=== PATIENT | female | born 1955 | race Caucasian/White ===

== ENCOUNTER 2023-10-14 19:32 | Inpatient (IN) | payer MEDICARE, OTHER ==
[~2023-10-14] VITALS: Ht 170.2 cm; Wt 102.3 kg
[2023-10-14] MEDS: normal saline 1000ml 1,000 ML IV ONE (20:22)
[2023-10-14 20:24] LABS: BASOPHILS % (AUTO) 0.2 % (0-1); EOSINOPHILS # (AUTO) 0.1 X10'3 (0-0.9); EOSINOPHILS % (AUTO) 1.6 % (0-6); HEMATOCRIT 40.5 % (35.0-45.0); HEMOGLOBIN 13.5 g/dl (12.0-16.0); LYMPHOCYTES # (AUTO) 1.9 X10'3 (1.1-4.8); LYMPHOCYTES % (AUTO) 23.9 % (21-51); MEAN CORPUSCULAR HEMOGLOBIN 30.5 PG (27.0-31.0); MEAN CORPUSCULAR HGB CONC 33.3 g/dL (33.0-36.5); MEAN CORPUSCULAR VOLUME 91.5 FL (78-98); MEAN PLATELET VOLUME 9.1 FL (7.4-10.4); MONOCYTES # (AUTO) 0.5 X10'3 (0-0.9); MONOCYTES % (AUTO) 6.8 % (2-12); NEUTROPHILS # (AUTO) 5.4 X10'3 (1.8-7.7); NEUTROPHILS % (AUTO) 67.5 % (42-75); PLATELET COUNT 279 X10'3 (140-440); RED BLOOD COUNT 4.43 X10'6 (4.20-5.60); RED CELL DISTRIBUTION WIDTH 13.8 % (11.5-14.5)
[2023-10-14 20:29] LABS: ALANINE AMINOTRANSFERASE 28 U/L (12-78); ALBUMIN 3.9 G/DL (3.4-5.0); ALBUMIN/GLOBULIN RATIO 1.1 (1.1-1.5); ALKALINE PHOSPHATASE 111 IU/L (46-116); ANION GAP 12 (8-16); ASPARTATE AMINO TRANSFERASE 20 U/L (10-37); BILIRUBIN,TOTAL 0.5 MG/DL (0.1-1.0); BLOOD UREA NITROGEN 12 MG/DL (7-18); BUN/CREATININE RATIO 14.6 (10.0-20.0); CALCIUM 8.9 MG/DL (8.5-10.1); CHLORIDE 104 MMOL/L (99-107); CREATININE 0.82 MG/DL (0.40-0.90); GLUCOSE 122 MG/DL (70-104); POTASSIUM 3.9 MMOL/L (3.5-5.1); SODIUM 144 MMOL/L (135-145); TOTAL CARBON DIOXIDE 28.1 MMOL/L (24-32); TOTAL PROTEIN 7.3 G/DL (6.4-8.2); eCRCL 66 ML/MIN; eGFR 70 ML/MIN
[2023-10-14 20:36] LABS: PRO BRAIN NATRIURETIC PEPTIDE 1106 PG/ML (0-125)
[2023-10-14 23:05] LABS: UA COLLECTION TYPE CLN CATCH MIDSTREAM
[2023-10-14 23:06] LABS: BILIRUBIN,URINE NEGATIVE (Neg); CLARITY,URINE SLIGHTLY CLOUDY (Clear); COLOR,URINE YELLOW (Yellow); GLUCOSE, URINE NEGATIVE (Neg); KETONES,URINE NEGATIVE (Neg); LEUKOCYTE ESTERASE ,URINE NEGATIVE (Neg); NITRITES, URINE NEGATIVE (Neg); OCCULT BLOOD,URINE NEGATIVE (Neg); PROTEIN,URINE TRACE mg/dl (Neg); UROBILINOGEN,URINE 0.2 E.U/dL (0.2-1.0)
[2023-10-14 23:14] LABS: BACTERIA,URINE FEW /HPF (Neg); MUCUS STRANDS FEW /LPF (Neg); RBC,URINE 0-2 /HPF (0-2); SQUAMOUS EPITHELIAL CELL,UR MODERATE /LPF (FEW); WBC,URINE 0-4 /HPF (0-4)
[2023-10-14] MEDS ORDERED: magnesium Cl slow-release 64mg tablet PO PRN (23:15)
[2023-10-14] MEDS ORDERED: magnesium hydroxide 30ml (MOM) UD suspension PO PRN (23:15)
[2023-10-14] MEDS ORDERED: magnesium sulf-water 4G/100mL 100 ML IV PRN (23:15)
[2023-10-14] MEDS ORDERED: magnesium sulf-water 2g/50mL 50 ML IV PRN (23:15)
[2023-10-14] MEDS ORDERED: potassium Cl 20 mEq SR tablet PO PRN ×2 (23:15)
[2023-10-14] MEDS ORDERED: mag hydrox/Alum hydrox/simeth 30ml oral suspension PO PRN (23:15)
[2023-10-14] MEDS ORDERED: ondansetron/PF 4mg/2ml inj IV PRN (23:15)
[2023-10-14] MEDS ORDERED: potassium Cl 40MEQ/1/2NS 520ml 520 ML IV PRN (23:15)
[2023-10-15] VITALS (9 sets, daily range): BP systolic 120–161; BP diastolic 63–87; PULSE 67–86; RESP 14–18; TEMP 97–98; O2SAT 94–98
[2023-10-15] MEDS ORDERED: VENL150C58 PO (00:53)
[2023-10-15 02:23] LABS: BASOPHILS % (AUTO) 0.4 % (0-1); EOSINOPHILS # (AUTO) 0.1 X10'3 (0-0.9); EOSINOPHILS % (AUTO) 0.8 % (0-6); HEMATOCRIT 36.6 % (35.0-45.0); HEMOGLOBIN 12.4 g/dl (12.0-16.0); LYMPHOCYTES # (AUTO) 2.1 X10'3 (1.1-4.8); LYMPHOCYTES % (AUTO) 22.8 % (21-51); MEAN CORPUSCULAR HEMOGLOBIN 31.1 PG (27.0-31.0); MEAN CORPUSCULAR HGB CONC 33.9 g/dL (33.0-36.5); MEAN CORPUSCULAR VOLUME 91.7 FL (78-98); MEAN PLATELET VOLUME 9.5 FL (7.4-10.4); MONOCYTES # (AUTO) 0.7 X10'3 (0-0.9); MONOCYTES % (AUTO) 7.3 % (2-12); NEUTROPHILS # (AUTO) 6.2 X10'3 (1.8-7.7); NEUTROPHILS % (AUTO) 68.7 % (42-75); PLATELET COUNT 263 X10'3 (140-440); RED BLOOD COUNT 3.99 X10'6 (4.20-5.60); RED CELL DISTRIBUTION WIDTH 13.9 % (11.5-14.5)
[2023-10-15 02:45] LABS: ALANINE AMINOTRANSFERASE 20 U/L (12-78); ALBUMIN 3.5 G/DL (3.4-5.0); ALKALINE PHOSPHATASE 100 IU/L (46-116); ANION GAP 9 (8-16); ASPARTATE AMINO TRANSFERASE 20 U/L (10-37); BILIRUBIN,TOTAL 0.3 MG/DL (0.1-1.0); BLOOD UREA NITROGEN 10 MG/DL (7-18); BUN/CREATININE RATIO 12.8 (10.0-20.0); CALCIUM 8.8 MG/DL (8.5-10.1); CHLORIDE 108 MMOL/L (99-107); CHOL/HDL RATIO 3.4 (0.00-4.99); CHOLESTEROL 210 MG/DL (0-200); CREATININE 0.78 MG/DL (0.40-0.90); GLUCOSE 112 MG/DL (70-104); HDL CHOLESTEROL 62 MG/DL (35-60); LDL CHOLESTEROL 111 MG/DL (50-100); MAGNESIUM 1.9 MG/DL (1.5-2.4); PHOSPHORUS 3.6 MG/DL (2.3-4.5); SODIUM 144 MMOL/L (135-145); TOTAL CARBON DIOXIDE 26.8 MMOL/L (24-32); TOTAL PROTEIN 7.1 G/DL (6.4-8.2); TRIGLYCERIDES 149 MG/DL (20-135); eCRCL 69 ML/MIN; eGFR 74 ML/MIN
[2023-10-15 03:23] LABS: HEMOGLOBIN A1C 5.6 % (4.5-6.2)
--- NOTE | 2023-10-15 04:02 | NUR ---
PT REPORTED AN APPROXIMATE 30 POUND WEIGHT LOSS IN THE LAST 6MO. SHE REPORTS THAT SHE HAS JUST LOST HER APPETITE BECAUSE OF THE HEAT, THAT SHE HAS BEEN TOO BUSY SO SHE SKIPS MEALS FREQUENTLY AND JUST DOESN'T FEEL HUNGRY ENOUGH TO EAT. Addendum: 10/15/23 at 0404 by Juanita Zavaleta RN RN Amended: Links added.
--- NOTE | 2023-10-15 06:13 | NUR ---
i agreed with corry Grant's assessment and interventions.
[2023-10-15] MEDS: docusate sod 100mg capsule PO SCH (08:00)
[2023-10-15] MEDS: K and/or MAG REPLACEMENT MC SCH (08:00)
[2023-10-15] MEDS: venlafaxine XR 75mg capsule (Q24H) PO SCH (08:33)
[2023-10-15] MEDS: heparin, porcine 5000 units/ml vial SQ SCH (08:35)
[2023-10-15] MEDS: normal saline 500ml IV soln 500 ML IV ONE (10:20)
--- NOTE | 2023-10-15 18:00 | NUR ---
Report received from Gita HWANG, assumed care of Pt
[2023-10-16 06:07] LABS: BASOPHILS % (AUTO) 0.5 % (0-1); EOSINOPHILS # (AUTO) 0.1 X10'3 (0-0.9); EOSINOPHILS % (AUTO) 2.2 % (0-6); HEMATOCRIT 38.5 % (35.0-45.0); LYMPHOCYTES % (AUTO) 34.5 % (21-51); MEAN CORPUSCULAR HEMOGLOBIN 30.8 PG (27.0-31.0); MEAN CORPUSCULAR HGB CONC 33.7 g/dL (33.0-36.5); MEAN CORPUSCULAR VOLUME 91.5 FL (78-98); MEAN PLATELET VOLUME 9.4 FL (7.4-10.4); MONOCYTES # (AUTO) 0.5 X10'3 (0-0.9); MONOCYTES % (AUTO) 8.9 % (2-12); NEUTROPHILS # (AUTO) 3.1 X10'3 (1.8-7.7); NEUTROPHILS % (AUTO) 53.9 % (42-75); PLATELET COUNT 235 X10'3 (140-440); RED BLOOD COUNT 4.21 X10'6 (4.20-5.60); WHITE BLOOD COUNT 5.8 X10'3 (4.5-11.0)
--- NOTE | 2023-10-16 06:32 | NUR ---
Patient in room [facility]TH[facility] 4015. I have received report from ERI Forte and had the opportunity to ask questions and assume patient care.
[2023-10-16 06:33] LABS: ALANINE AMINOTRANSFERASE 24 U/L (12-78); ALBUMIN 3.4 G/DL (3.4-5.0); ALBUMIN/GLOBULIN RATIO 1.1 (1.1-1.5); ALKALINE PHOSPHATASE 97 IU/L (46-116); ANION GAP 10 (8-16); ASPARTATE AMINO TRANSFERASE 21 U/L (10-37); BILIRUBIN,TOTAL 0.6 MG/DL (0.1-1.0); BLOOD UREA NITROGEN 3 MG/DL (7-18); BUN/CREATININE RATIO 4.3 (10.0-20.0); CALCIUM 8.8 MG/DL (8.5-10.1); CHLORIDE 107 MMOL/L (99-107); CREATININE 0.69 MG/DL (0.40-0.90); GLUCOSE 103 MG/DL (70-104); MAGNESIUM 1.8 MG/DL (1.5-2.4); SODIUM 143 MMOL/L (135-145); TOTAL CARBON DIOXIDE 26.5 MMOL/L (24-32); TOTAL PROTEIN 6.6 G/DL (6.4-8.2); eCRCL 78 ML/MIN; eGFR 85 ML/MIN
[2023-10-16 06:52] VITALS: BP 132/79; PULSE 69; RESP 14; TEMP 98.6; O2SAT 99
[2023-10-16 07:11] LABS: POTASSIUM 3.9 MMOL/L (3.5-5.1)
[2023-10-16] MEDS: carVEDilol 3.125mg tablet PO SCH (07:15)
[2023-10-16] MEDS: losartan 25mg tablet PO SCH (07:15)
[2023-10-16 07:31] VITALS: RESP 14; O2SAT 99
[2023-10-16 08:00] VITALS: BP_SYST 128; BP_SYST 129; BP_SYST 130; BP_DIAS 80; BP_DIAS 84; PULSE 73; PULSE 83; PULSE 97
[2023-10-16] MEDS: EMPAGLIFLOZIN 10 MG TABLET PO SCH (08:00)
--- NOTE | 2023-10-16 09:01 | NUR ---
PAGER ID: [phone] MESSAGE: [id number]- [email or web address]- per report pt to have PM placed today at 1200. pt has been NPO and has jardiance ordered. Ok to give or hold?- Veronika [phone]
[2023-10-16 09:41] LABS: PROTHROMBIN TIME 10.8 SECONDS (9.0-12.0)
[2023-10-16 10:00] VITALS: BP 132/88; PULSE 80; RESP 18; TEMP 98; O2SAT 96
[2023-10-16] MEDS: spironolactone 25 MG tablet PO SCH (10:02)
--- NOTE | 2023-10-16 10:59 | NUR ---
Order for pacemaker today at noon cancelled and ordered for tomorrow 0900. Called and spoke to Jordan in [facility] who stated Dr. Campoverde will do tomorrow. Called to Dr. Beck ok to feed patient? Dr. Beck states will round on patient with Dr. Riojas and will discuss.
--- NOTE | 2023-10-16 11:41 | NUR ---
Dr. Riojas in to see patient. Ok that patient gets Jardiance and to feed patient.
[2023-10-16 14:34] LABS: URINE AMPHETAMINE SCREEN NEGATIVE (Neg); URINE BARBITUATE SCREEN NEGATIVE (Neg); URINE BENZODIAZEPINES SCREEN NEGATIVE (Neg); URINE CANNABINOID SCREEN POSITIVE (Neg); URINE COCAINE SCREEN NEGATIVE (Neg); URINE METHADONE SCREEN NEGATIVE (Neg); URINE OPIATE SCREEN NEGATIVE (Neg); URINE PHENCYCLIDINE SCREEN NEGATIVE (Neg)
--- NOTE | 2023-10-16 15:49 | NUR ---
Malnutrition consult: Per RN malnutrition screen pt reports 34 or more pounds wt loss and decreased PO intake/appetite. Wt this admit of 102.27kg is ~167% of IBW. Wt this admit is up from only other wt hx in EMR of 92.45kg on 07/01/18. Pt presents with no decreased muscle strength and no edema per EMR. Pt seen at bedside however was in a deep sleep and did not wake up to verbal cues. Pt appeared nourished with visible signs of fat or muscle loss related to malnutrition. Based on information obtained and pt's physical presentation, RD unable to identify a minimum of two malnutrition criteria at this time. Will continue to monitor for signs and symptoms. Addendum: 10/16/23 at [address] Amended: Links added.
[2023-10-16] MEDS: acetaminophen 325mg tablet PO PRN (16:48)
[2023-10-16 18:00] VITALS: BP 127/74; PULSE 71; RESP 18; TEMP 98.2; O2SAT 95
--- NOTE | 2023-10-16 18:27 | NUR ---
Problems reprioritized. Patient report given, questions answered & plan of care reviewed with ERI Vidal.
[2023-10-16 22:00] VITALS: BP 119/80; PULSE 72; RESP 15; TEMP 98.2; O2SAT 94
[2023-10-17] VITALS (13 sets, daily range): BP systolic 96–116; BP diastolic 52–70; PULSE 61–85; RESP 16–20; TEMP 97–97.7; O2SAT 90–96
[2023-10-17 05:04] LABS: BASOPHILS # (AUTO) 0.1 X10'3 (0-0.2); BASOPHILS % (AUTO) 0.7 % (0-1); EOSINOPHILS # (AUTO) 0.1 X10'3 (0-0.9); EOSINOPHILS % (AUTO) 1.9 % (0-6); HEMATOCRIT 42.8 % (35.0-45.0); HEMOGLOBIN 14.4 g/dl (12.0-16.0); LYMPHOCYTES # (AUTO) 2.4 X10'3 (1.1-4.8); MEAN CORPUSCULAR HEMOGLOBIN 30.6 PG (27.0-31.0); MEAN CORPUSCULAR HGB CONC 33.6 g/dL (33.0-36.5); MEAN CORPUSCULAR VOLUME 91.1 FL (78-98); MEAN PLATELET VOLUME 9.1 FL (7.4-10.4); MONOCYTES # (AUTO) 0.5 X10'3 (0-0.9); MONOCYTES % (AUTO) 7.4 % (2-12); NEUTROPHILS # (AUTO) 4.2 X10'3 (1.8-7.7); PLATELET COUNT 262 X10'3 (140-440); RED CELL DISTRIBUTION WIDTH 13.9 % (11.5-14.5); WHITE BLOOD COUNT 7.4 X10'3 (4.5-11.0)
[2023-10-17 05:12] LABS: PROTHROMBIN TIME 10.5 SECONDS (9.0-12.0)
[2023-10-17 05:18] LABS: ALANINE AMINOTRANSFERASE 19 U/L (12-78); ALBUMIN 3.9 G/DL (3.4-5.0); ALKALINE PHOSPHATASE 111 IU/L (46-116); ANION GAP 9 (8-16); BILIRUBIN,TOTAL 0.8 MG/DL (0.1-1.0); BLOOD UREA NITROGEN 11 MG/DL (7-18); BUN/CREATININE RATIO 13.9 (10.0-20.0); CALCIUM 9.3 MG/DL (8.5-10.1); CHLORIDE 106 MMOL/L (99-107); CREATININE 0.79 MG/DL (0.40-0.90); GLUCOSE 116 MG/DL (70-104); SODIUM 141 MMOL/L (135-145); TOTAL CARBON DIOXIDE 26.5 MMOL/L (24-32); TOTAL PROTEIN 7.8 G/DL (6.4-8.2); eCRCL 68 ML/MIN; eGFR 73 ML/MIN
[2023-10-17] MEDS: vancomycin/NS 1 GM in NS 250 ML IV ONE (06:00)
[2023-10-17 06:01] LABS: ASPARTATE AMINO TRANSFERASE 29 U/L (10-37); PHOSPHORUS 4.9 MG/DL (2.3-4.5); POTASSIUM 4.3 MMOL/L (3.5-5.1)
[2023-10-17] MEDS ORDERED: LIDOcaine 1% W/epiNEPHrine 1:100,000 20ml vial ONE (06:12)
[2023-10-17] MEDS ORDERED: midazolam 1 mg/ML 2ml injection ONE ×4 (06:12→08:35)
[2023-10-17] MEDS ORDERED: vancomycin 1,000mg inj ONE (06:13)
[2023-10-17] MEDS ORDERED: fentaNYL/PF 50MCG/1 ML 2ML syringe ONE (06:13)
[2023-10-17] MEDS ORDERED: iohexol 350 MG/ML 50ML vial IV ONE (06:13)
[2023-10-17] MEDS ORDERED: ceFAZolin 1000mg inj ONE (06:26)
--- NOTE | 2023-10-17 07:04 | NUR ---
Patient down to cardiac cath technologist.
--- NOTE | 2023-10-17 07:04 | NUR ---
Patient in room [facility]TH[facility] 4015. I have received report from Jillian Vidal and had the opportunity to ask questions and assume patient care.
--- NOTE | 2023-10-17 07:04 | NUR ---
IV deborah barth was sent down with patient.
[2023-10-17] MEDS ORDERED: HYDROmorphone 1 mg/ml syringe ONE ×2 (07:27→08:06)
--- NOTE | 2023-10-17 09:23 | NUR ---
Patient back to room accompanied by Esther RN and ERI Suarez. Patient drowsy but easily awakens to voice and denies any complaints at this time. Patient asking for water. Post procedure vitals initiated. Call light placed within patient reach. Left chest implant site CDI, soft around.
--- NOTE | 2023-10-17 09:23 | NUR ---
Patient back to room
[2023-10-17] MEDS: HYDROcodone/acetaminophen 10/325mg tab PO PRN (09:47)
[2023-10-17] MEDS: normal saline 1000ml 1,000 ML IV SCH (09:51)
[2023-10-17] MEDS: normal saline 500ml IV soln 500 ML IV ONE (09:56)
[2023-10-17] MEDS ORDERED: HYDR-3965 PO (11:13)
[2023-10-17] MEDS: morphine 2 MG/ML inj. syringe IV ONE (12:13)
[2023-10-17] MEDS ORDERED: LOSA25TA41 PO (13:37)
[2023-10-17] MEDS ORDERED: COR3.125T PO (13:37)
[2023-10-17] MEDS ORDERED: EMPA10TA PO (13:37)
[2023-10-17] MEDS ORDERED: SPIR25TA PO (13:37)
[2023-10-17] MEDS: HYDROcodone/acetaminophen 5mg/325mg tablet PO PRN (15:39)
--- NOTE | 2023-10-17 17:04 | NUR ---
Patient alert and oriented in no apparent acute distress with at bedside. Discussed with patient discharge instructions and new prescription. Patient verbalizes understanding of teaching. Patient given BIV PPM AICD device information card to take home. Patient escorted out in wheelchair accompanied by x1 staff and spouse. Addendum: 10/17/23 at 1709 by Veronika Ellison RN Patient home meds stored in pharmacy were given patient. Left arm/hand CSM intact, left arm in sling. PPM AICD implant site dressing CDI. No hematoma.
== END 2023-10-17 17:03 | disposition home or self-care (01) | DRG 243 ==
LOC: ER 19:34 → ED HOLD 10-15 00:02 → ORTHO 4S 10-15 01:20 → OBSVTOIN 10-15 17:25
PROVIDERS: ADMIT Surgery Surgical Critical Care; ATTEND Internal Medicine
PROC: 0JH607Z Insertion of Cardiac Resynchronization Pacemaker Pulse Generator into Chest Subcutaneous Tissue and Fascia, Open Approach (ICD-10-PCS; principal; 2023-10-17)
PROC: 02H63JZ Insertion of Pacemaker Lead into Right Atrium, Percutaneous Approach (ICD-10-PCS; 2023-10-17)
PROC: 02HK3JZ Insertion of Pacemaker Lead into Right Ventricle, Percutaneous Approach (ICD-10-PCS; 2023-10-17)
PROC: 02HL3JZ Insertion of Pacemaker Lead into Left Ventricle, Percutaneous Approach (ICD-10-PCS; 2023-10-17)
PROC: B5171ZZ Fluoroscopy of Left Subclavian Vein using Low Osmolar Contrast (ICD-10-PCS; 2023-10-17)
DX: I49.8 Other specified cardiac arrhythmias (principal); I50.22 Chronic systolic (congestive) heart failure; I44.7 Left bundle-branch block, unspecified; I42.0 Dilated cardiomyopathy; I11.0 Hypertensive heart disease with heart failure; F32.A Depression, unspecified; F41.9 Anxiety disorder, unspecified; Z96.643 Presence of artificial hip joint, bilateral; Z90.49 Acquired absence of other specified parts of digestive tract
CPT/HCPCS: 33249; 36415; 71045; 80053; 80061; 80305; 81001; 82948; 83036; 83735; 83880; 84100; 84484; 85025; 85610; 87081; 93005; 93306; 99152; 99153; 99285; A4663; A6258; C1769; C1882; C1895; C1900; G0378; J0690; J1170; J1644; J2250; J2270; J3010; J3370; J3490; J7030; J7040; Q9967

== ENCOUNTER 2023-11-05 07:37 | Day surgery (SDC) | payer MEDICARE ==
[2023-11-05] VITALS (7 sets, daily range): BP systolic 103–115; BP diastolic 57–69; PULSE 63–67; RESP 14–16; TEMP 97.8; O2SAT 92–96
[~2023-11-05] VITALS: Ht 170.2 cm; Wt 103.9 kg
[~2023-11-05 07:37] MED LIST: COR3.125T PO; EMPA10TA PO; HYDR-3965 PO; LOSA25TA41 PO; SPIR25TA PO; VENL150C58 PO
[2023-11-05] MEDS ORDERED: SPIR25TA5 PO (08:36)
[2023-11-05] MEDS ORDERED: LOSA-415 PO (08:39)
[2023-11-05] MEDS ORDERED: CARV3.12 PO (08:40)
[2023-11-05 08:52] LABS: BASOPHILS % (AUTO) 0.4 % (0-1); EOSINOPHILS # (AUTO) 0.3 X10'3 (0-0.9); EOSINOPHILS % (AUTO) 4.7 % (0-6); HEMATOCRIT 36.8 % (35.0-45.0); HEMOGLOBIN 12.2 g/dl (12.0-16.0); LYMPHOCYTES # (AUTO) 1.6 X10'3 (1.1-4.8); MEAN CORPUSCULAR HEMOGLOBIN 30.4 PG (27.0-31.0); MEAN CORPUSCULAR HGB CONC 33.1 g/dL (33.0-36.5); MEAN CORPUSCULAR VOLUME 91.9 FL (78-98); MONOCYTES # (AUTO) 0.6 X10'3 (0-0.9); MONOCYTES % (AUTO) 9.1 % (2-12); NEUTROPHILS # (AUTO) 4.1 X10'3 (1.8-7.7); NEUTROPHILS % (AUTO) 61.8 % (42-75); PLATELET COUNT 230 X10'3 (140-440); RED BLOOD COUNT 4.01 X10'6 (4.20-5.60); RED CELL DISTRIBUTION WIDTH 13.8 % (11.5-14.5); WHITE BLOOD COUNT 6.6 X10'3 (4.5-11.0)
[2023-11-05 08:54] LABS: PROTHROMBIN TIME 10.6 SECONDS (9.0-12.0)
[2023-11-05] MEDS ORDERED: cefazolin 2gm/D5W 100mL 100 ML IV ONE (08:55)
[2023-11-05 09:10] LABS: ALBUMIN 3.6 G/DL (3.4-5.0); ANION GAP 10 (8-16); BLOOD UREA NITROGEN 15 MG/DL (7-18); BUN/CREATININE RATIO 18.8 (10.0-20.0); CALCIUM 8.7 MG/DL (8.5-10.1); CHLORIDE 105 MMOL/L (99-107); GLUCOSE 99 MG/DL (70-104); MAGNESIUM 1.7 MG/DL (1.5-2.4); SODIUM 141 MMOL/L (135-145); TOTAL CARBON DIOXIDE 25.7 MMOL/L (24-32); eCRCL 67 ML/MIN; eGFR 72 ML/MIN
[2023-11-05] MEDS: VANCOMYCIN 1,500MG in NS 300ml IVPB IV ONE (09:25)
[2023-11-05] MEDS ORDERED: midazolam 1 mg/ML 2ml injection ONE ×4 (09:48→12:43)
[2023-11-05] MEDS ORDERED: LIDOcaine 1% W/epiNEPHrine 1:100,000 20ml vial ONE (09:48)
[2023-11-05] MEDS ORDERED: vancomycin 1,000mg inj ONE (09:48)
[2023-11-05] MEDS ORDERED: fentaNYL/PF 50MCG/1 ML 2ML syringe ONE ×2 (09:48→11:44)
[2023-11-05] MEDS ORDERED: proCHLORperazine 10 MG/2 ml inj ONE (12:04)
== END 2023-11-05 15:30 | disposition home or self-care (01) ==
LOC: SSTAY O 07:37
PROVIDERS: ATTEND Internal Medicine Cardiovascular Disease
DX: T82.120A Displacement of cardiac electrode, initial encounter (principal); I42.8 Other cardiomyopathies; I49.3 Ventricular premature depolarization; I10 Essential (primary) hypertension; E66.9 Obesity, unspecified; I44.7 Left bundle-branch block, unspecified; F32.A Depression, unspecified; Z79.899 Other long term (current) drug therapy; Z90.89 Acquired absence of other organs; Z90.49 Acquired absence of other specified parts of digestive tract; Z96.643 Presence of artificial hip joint, bilateral; Z98.890 Other specified postprocedural states; Z68.35 Body mass index [BMI] 35.0-35.9, adult; Z82.49 Family history of ischemic heart disease and other diseases of the circulatory system; Y83.8 Other surgical procedures as the cause of abnormal reaction of the patient, or of later complication, without mention of misadventure at the time of the procedure; Y92.89 Other specified places as the place of occurrence of the external cause
CPT/HCPCS: 33215; 36415; 80048; 83735; 85025; 85610; 93005; 99152; 99153; A4565; A6258; J0780; J2250; J3010; J3370; J3490; J7030; J7040

== ENCOUNTER 2024-07-18 09:57 | Outpatient (CLI) | payer MEDICARE ==
[~2024-07-18 09:57] MED LIST changes: +CARV3.12 PO; -COR3.125T PO; -EMPA10TA PO; -HYDR-3965 PO; +LOSA-415 PO; -LOSA25TA41 PO; -SPIR25TA PO; +SPIR25TA5 PO
--- NOTE | 2024-07-20 16:58 | CARDIOLOGY REPORT ---
APPROVED REPORT EXAM: Comprehensive 2D, Doppler, and color-flow Echocardiogram. Patient Location: OUT-PATIENT Blood Pressure: 109/66 mmHg Heart Rate: 111 bpm Rhythm: Pacemaker Indications Congestive Heart Failure Syncope Atrial Fibrillation Pacemaker (11/05) UNEMPLOYMENT CLAIMS ADJUDICATOR: Shane Campoverde MD Previous ECHO: 10/15/23, [facility], [facility], EF: 30; mLAE; modRVE; mMR/TR 2D Dimensions LA Diam4.0 cm IVSd 1.0 (0.7-1.1cm) LVDd 4.5 cm PWd 0.9 (0.7-1.1cm) IVSs 1.1 (0.8-1.2cm) LVDs 3.0 (2.5-4.0cm) PWs 1.1 (0.8-1.2cm) LVOT Diameter 2.23 (1.8-2.4cm) LVEF(%) 62.4 (>50%) IVC 15.97 mm FS (%) 33.5 % SV 57.3 ml M-Mode Dimensions Left Atrium(MM) 4.44 (2.5-4.0cm) Aortic Root 2.59 (2.2-3.7cm) MV EPSS 1.1 (<0.5cm) Aortic Valve AoV Peak Ricky. 132.8 cm/s AoV VTI 21.6 cm AO Peak GR. 7.1 mmHg AO Mean GR. 4 mmHg LVOT VTI 17.85 cm LVOT Peak Ricky. 100.2 cm/s PATRICIA (VMAX) 2.95 cm2 PATRICIA (VTI) 3.23 cm2 Mitral Valve MV E Velocity 40.5 cm/s MV DECEL TIME 337 ms MV A Velocity 81.9 cm/s MV PHT 87 ms E/A Ratio 0.5 MVA (PHT) 2.53 cm2 TDI E/Medial E' 9.6 Pulmonary Valve PV Peak Velocity 84.8 cm/s PV Peak Grad. 3 mmHg Tricuspid Valve TR P. Velocity 213 cm/s RAP ESTIMATE 10 mmHg TR Peak Gr. 18 mmHg RVSP 28 mmHg LEFT VENTRICLE Normal LV size and wall thickness. Overall systolic function is low normal. LVEF is 50%. RIGHT VENTRICLE RV is normal size and function. Elevated right heart pressures as noted above. ATRIA Left atrium is mildly dilated. Pacemaker lead is present in the right heart. AORTIC VALVE Trileaflet AV appears mildly sclerotic without stenosis. Trivial insufficiency. MITRAL VALVE Mild mitral annular calcification without stenosis. Trace regurgitation. TRICUSPID VALVE The tricuspid valve is normal in structure with trace regurgitation. PULMONIC VALVE The pulmonary valve is normal in structure with trace insufficiency. GREAT VESSELS The aortic root is normal in size. The ascending aorta is normal in size. The IVC is normal in size a nd collapses >50% with inspiration. PERICARDIUM Normal pericardium. No effusion. Other Information Study Quality: Adequate Conclusion Normal LV size and wall thickness. Overall systolic function is low normal. LVEF is 50%. RV is normal size and function. Elevated right heart pressures as noted above. Left atrium is mildly dilated. Pacemaker lead is present in the right heart. Trileaflet AV appears mildly sclerotic without stenosis. Trivial insufficiency. Mild mitral annular calcification without stenosis. Trace regurgitation. The tricuspid valve is normal in structure with trace regurgitation. The pulmonary valve is normal in structure with trace insufficiency. Normal pericardium. No effusion.
== END 2024-07-18 23:59 | disposition home or self-care (01) ==
LOC: CARD DIAG 09:57
PROVIDERS: ATTEND Internal Medicine Cardiovascular Disease
DX: I34.81 Nonrheumatic mitral (valve) annulus calcification (principal); I37.1 Nonrheumatic pulmonary valve insufficiency; R55 Syncope and collapse; I48.91 Unspecified atrial fibrillation; I50.1 Left ventricular failure, unspecified; Z95.0 Presence of cardiac pacemaker
CPT/HCPCS: 93306